=== PATIENT | female | born 1965 | race African-American/Black ===

== ENCOUNTER 2020-07-24 22:11 | Emergency (ER) | payer OTHER ==
[2020-07-24 22:33] VITALS: BP 158/71; PULSE 116; TEMP 98.5; BMI 28.6
[2020-07-24] MEDS ORDERED: ACETAMINOPHEN 325 MG TABLET (FP) PO ONE (23:08)
[2020-07-24] MEDS ORDERED: ACETAMINOPHEN 325 MG TABLET (FP) ONE (23:22)
== END 2020-07-25 00:10 | disposition home or self-care (01) ==
LOC: JER 22:11
DX: M25.562 Pain in left knee (principal); V49.40XA Driver injured in collision with unspecified motor vehicles in traffic accident, initial encounter
CPT/HCPCS: 73564-TC-LT-FY; 99283-25

== ENCOUNTER 2022-05-07 11:57 | Emergency (ER) | payer OTHER ==
[2022-05-07 12:31] VITALS: BP 147/62; PULSE 89; RESP 19; TEMP 98.6; BMI 28.8
[2022-05-07] MEDS ORDERED: ACETAMINOPHEN 500 MG TABLET (FP) PO ONE (13:16)
== END 2022-05-07 13:30 | disposition home or self-care (01) ==
LOC: JER 11:57
DX: J09.X2 Influenza due to identified novel influenza A virus with other respiratory manifestations (principal)
CPT/HCPCS: 0241U-QW; 99283-25